=== PATIENT | male | born 1995 | race Caucasian/White ===

== ENCOUNTER 2018-08-13 14:28 | Emergency (ER) | payer OTHER ==
[~2018-08-13] VITALS: Ht 180.3 cm; Wt 71.2 kg
[2018-08-13 15:23] VITALS: BP_SYST 109
--- NOTE | 2018-08-13 16:01 | NUR ---
Patient to ER bed 02 to gown for evaluation. Side rails up.
--- NOTE | 2018-08-13 16:10 | NUR ---
Pt complaining of throat pain x 3 days, denies cough, congestion, SOB or other symptoms. Pt a/o x 4, speaks [place], and is cooperative.
--- NOTE | 2018-08-13 16:10 | NUR ---
ER CAMILLE Morales at bedside examining patient.
[2018-08-13] MEDS ORDERED: KETOROLAC TROMETHAMINE 60 MG/2 ML VIAL IM ONE (16:15)
[2018-08-13 17:30] VITALS: BP_SYST 109
--- NOTE | 2018-08-13 17:30 | NUR ---
Patient given written and verbal discharge instructions and verbalizes understanding. ER MD discussed with patient the results and treatment provided. Patient in stable condition. ID arm band removed. Rx of prednisone given. Patient educated on pain management and to follow up with PMD. Pain Scale 1/10. Opportunity for questions provided and answered. Medication side effect fact sheet provided.
== END 2018-08-13 17:30 | disposition home or self-care (01) ==
LOC: SED 14:28
DX: J02.9 Acute pharyngitis, unspecified (principal)
CPT/HCPCS: 36415; 86403; 87081; 99283; J1885